=== PATIENT | female | born 1955 | race American Indian/Alaskan Native ===

== ENCOUNTER 2019-04-21 06:39 | Day surgery (SDC) | payer BC ==
[2019-04-21] MEDS ORDERED: NACL 0.9% 1000 ML 1,000 ML IV SCH (07:00)
--- NOTE | 2019-04-21 08:17 | Anesthesia Day of Surgery ---
Anesthesia Day of Surgery - Day of Surgery Patient Examined: Yes Patient H&P Reviewed: Yes Patient is NPO: Yes
--- NOTE | 2019-04-21 08:17 | Anesthesia Consultation ---
Anesthesia Consult and Med Hx Date of service: 04/21/19 - Airway Anesthetic Teeth Evaluation: Partials ROM Head & Neck: Adequate Mental/Hyoid Distance: Adequate Mallampati Class: Class II Intubation Access Assessment: Probably Good - Pulmonary Exam CTA: Yes - Cardiac Exam Cardiac Exam: RRR - Pre-Operative Health Status ASA Pre-Surgery Classification: ASA1 Proposed Anesthetic Plan: MAC - Pulmonary Hx Smoking: No Hx Respiratory Symptoms: No Hx Sleep Apnea: No - Cardiovascular System Hx Hypertension: No Hx Heart Attack/AMI: No - Central Nervous System Hx Seizures: No CVA: No - Gastrointestinal Hx Gastroesophageal Reflux Disease: No - Endocrine Hx Renal Disease: No Hx Liver Disease: No Hx Insulin Dependent Diabetes: No Hx Non-Insulin Dependent Diabetes: No Hx Thyroid Disease: No - Other Systems Hx Obesity: No - Additional Comments Anesthesia Medical History Comments: No hx anesthetic complications. Patient is very anxious about the procedure and anesthetic.
--- NOTE | 2019-04-21 09:12 | Short Stay Summary ---
Short Stay Documentation Date of service: 04/21/19 Narrative H&P: The patient presents for her first screening colonoscopy.Average risk profile. - History Past Medical History: hyperlipidemia Past Surgical History: , Other (tubal ligation) Social history: no significant social history - Allergies and Medications Current Medications: Allergies No Known Allergies Allergy (Verified 04/20/19 10:38) Home Medications Medication Instructions Recorded Confirmed Last Taken Type Gemfibrozil 600 mg PO BID 04/20/19 04/20/19 04/20/19 History Active Medications Sodium Chloride (Nacl 0.9% 1000 Ml) 1,000 mls @ 50 mls/hr IV DIRECT KINA Last Admin: 04/21/19 08:34 Dose: 50 mls/hr Documented by: - Physical exam General appearance: no acute distress, well-nourished Integumentary: no rash, no growths, no abnormal pigmentation HEENT: Atraumatic, PERRLA, EOMI, Mucous membr. moist/pink Lungs: Clear to auscultation Breasts: deferred Heart: Regular rate, Normal S1, Normal S2, No murmurs Gastrointestinal: normal, normoactive bowel sounds, no tenderness, no distended, no masses, no guarding, no organomegaly, no obese Female Genitourinary: deferred Rectal Exam: deferred, normal exam-external/orifice, normal rectal tone Extremities: no ischemia, pulses intact, pulses symmetrical, No edema, normal temperature, normal color, Full ROM Neurological: Normal gait, Normal speech, Strength at 5/5 X4 ext, Normal tone, Sensation intact, Cranial nerves 3-12 NL - Brief post op/procedure progress note Date of procedure: 04/21/19 Findings: see dictated report Estimated blood loss: none Pathology: none Condition: stable - Disposition Condition at discharge: Good Disposition: DC-01 TO HOME OR SELFCARE - Discharge Diagnoses (1) Colon cancer screening Status: Acute Short Stay Discharge Plan Activity: other (no driving for 24 hours) Weight Bearing Status: Full Weight Bearing Diet: regular Follow up with: HAILY FORTUNE PA [Primary Care Provider] - 7 Days
--- NOTE | 2019-04-21 09:14 | Operative Report ---
Operative Report Operative Report: Date of procedure: 04/21/2019 Preprocedure diagnosis: Colon cancer screening, no prior studies. Average risk. Post procedure diagnosis: Normal study Procedure: Colonoscopy to the cecum Endoscopist: Dr. Gilbert Anesthesia: Monitored anesthesia care per anesthesia department Estimated blood loss: 0 Medications: Monitored anesthesia care. See separate report by anesthesia for details. After careful discussion of the nature and purpose of the procedure as well as details of the technique risks benefits and alternatives the patient gave consent. Please see recent history and physical from the office. The patient was placed in the left lateral decubitus position and medicated per anesthesia. A rectal exam was performed sphincter tone was normal there were no masses palpable. The [employer] 570 scope was passed transanally and advanced under continuous direct vision without difficulty to the cecum. The colon was well prepared. The cecum was normal. The ascending colon was normal and on forward and retroflexed views. The transverse colon, descending colon, and sigmoid colon were normal. The rectum was normal on forward and retroflexed views. The procedure was well-tolerated overall and the patient was observed in recovery. Conclusions: Normal colonoscopy to the cecum. Plan: Repeat colonoscopy in 10 years, sooner if clinically indicated. Signed electronically: Alok Gilbert M.D.
[2019-04-21] MEDS ORDERED: DIPRIVAN 10 MG/ML IV ONE (09:20)
[2019-04-21 09:43] VITALS: BP 131/72
== END 2019-04-21 06:40 | disposition home or self-care (01) ==
LOC: GIO 06:39
PROVIDERS: ATTEND Internal Medicine Gastroenterology
DX: Z12.11 Encounter for screening for malignant neoplasm of colon (principal); E78.00 Pure hypercholesterolemia, unspecified; E78.5 Hyperlipidemia, unspecified; Z80.0 Family history of malignant neoplasm of digestive organs; Z98.51 Tubal ligation status; Z98.891 History of uterine scar from previous surgery; Z79.899 Other long term (current) drug therapy
CPT/HCPCS: 45378; J2704; J7030

== ENCOUNTER 2021-11-06 09:48 | Outpatient (CLI) | payer BC ==
--- NOTE | 2021-11-06 10:27 | XRay Report ---
Left hand 3 views INDICATION: Wrist pain FINDINGS: MCP joints and IP joints appear intact. No erosive or destructive changes. No focal soft ti ssue swelling or abnormality. Degenerative changes in the IP joint of the thumb. Signer Name: Jesus Manuel Glass MD Signed: 11/06/2021 10:23 AM Workstation Name: [id number]
== END 2021-11-06 09:49 | disposition home or self-care (01) ==
LOC: XRAY 09:48
PROVIDERS: ATTEND Orthopaedic Surgery
DX: M19.042 Primary osteoarthritis, left hand (principal)

== ENCOUNTER 2022-01-16 12:05 | Emergency (ER) | payer BC, OTHER ==
--- NOTE | 2022-01-16 13:17 | Event Note ---
ED Screening Note Date of service: 01/16/22 Time: 13:16 ED Screening Note: Patient complains of bilateral rib pain and left-sided chest pain after a fall yesterday She states today while walking she began to feel winded No past medical history per patient Patient reports she believes she hit her back and her side on the stairs when she fell This initial assessment/diagnostic orders/clinical plan/treatment(s) is/are subject to change based on patients health status, clinical progression and re- assessment by fellow clinical providers in the ED. Further treatment and workup at subsequent clinical providers discretion. Patient/guardian urged not to elope from the ED as their condition may be serious if not clinically assessed and managed. Initial orders include: Labs EKG Rib x-ray
[2022-01-16 13:45] LABS: Basophils # (Auto) 0.1 K/mm3 (0.0-0.1); Basophils % (Auto) 0.6 % (0.0-1.8); Eosinophils # (Auto) 0.1 K/mm3 (0.0-0.4); Eosinophils % (Auto) 1.5 % (0.0-4.3); Hemoglobin 13.5 gm/dl (10.1-14.3); Lymphocytes # (Auto) 1.9 K/mm3 (1.2-5.4); Lymphocytes % (Auto) 23.5 % (13.4-35.0); Mean Corpuscular HGB Conc 34 % (30-34); Mean Corpuscular Volume 91 fl (79-97); Monocytes # (Auto) 0.6 K/mm3 (0.0-0.8); Monocytes % (Auto) 7.4 % (0.0-7.3); Platelet Count 283 K/mm3 (140-440); Red Cell Distribution Width 13.5 % (13.2-15.2)
--- NOTE | 2022-01-16 14:01 | XRay Report ---
BILATERAL RIBS 4 VIEWS INDICATION / CLINICAL INFORMATION: bilat posterior lower pain and left pain post fall. COMPARISON: None available. FINDINGS: RIBS: No acute, displaced fracture or other acute abnormality. LUNGS: No acute findings. No pneumothorax. Signer Name: Slick Begum MD Signed: 01/16/2022 1:56 PM Workstation Name: [id number]
[2022-01-16 14:06] LABS: Alanine Aminotransferase 20 units/L (7-56); Albumin 4.1 g/dL (3.9-5); BUN/Creatinine Ratio 17; Blood Urea Nitrogen 15 mg/dL (7-17); Calcium 9.4 mg/dL (8.4-10.2); Hemolysis Index 7
[2022-01-16] MEDS ORDERED: KETOROLAC 10 MG TAB PO ONE (14:36)
[2022-01-16] MEDS ORDERED: ACETAMINOPHEN W/CODEINE 300-30 MG TAB PO ONE (14:37)
[2022-01-16] MEDS ORDERED: CYCLOBENZAPRINE 10 MG TAB PO ONE (14:37)
--- NOTE | 2022-01-16 14:40 | Emergency Department Report ---
ED Fall HPI - General Chief Complaint: Dyspnea/Respdistress Stated Complaint: INCREASE EFFORT TO BREATH Time Seen by Provider: 01/16/22 13:14 Source: patient Mode of arrival: Ambulatory - History of Present Illness Initial Comments: 66-year-old black female with no past medical history presents to the emergency department with shortness of breath. She states that 2 days ago she slipped down on her stairs and hit her left rib area and has been having pain to the area since then. She states that today while working pain was worse and it made her feel like she could not catch her breath. She states that pain is to the entire left rib area along with the left chest area. Pain is worse with movement and palpation. She denies nausea, vomiting, dizziness, diaphoresis. 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 denies: headache, neck pain, numbness, weakness, abdominal pain, hematuria, unable to walk, lightheaded, vertigo, confusion - Related Data Home Medications Medication Instructions Recorded Confirmed Last Taken Gemfibrozil 600 mg PO BID 04/20/19 04/20/19 04/20/19 Previous Rx's Medication Instructions Recorded Last Taken Type HYDROcodone/APAP 5-325 [Astatula 1 each PO Q6HR PRN #12 tablet 01/16/18 Unknown Rx 5/325] Homatropine HBr [Homatropine 1 drop OP BID 2 Days #5 ml 01/16/18 Unknown Rx Hydrobromide] Moxifloxacin HCl [Vigamox 0.5%] 1 drop OP Q8HR #1 bottle 01/16/18 Unknown Rx Naphazoline HCl/Pheniramine 1 drop OP TID #1 bottle 01/16/18 Unknown Rx [Naphcon-A Eye Drops] Acetaminophen/Codeine [Tylenol 1 tab PO Q6H PRN #12 tab 01/16/22 Unknown Rx /Codeine # 3 tab] Cyclobenzaprine [Flexeril] 10 mg PO TID PRN #12 tab 01/16/22 Unknown Rx Ketorolac [Toradol] 10 mg PO Q6H PRN #12 tab 01/16/22 Unknown Rx Allergies Allergy/AdvReac Type Severity Reaction Status Date / Time No Known Allergies Allergy Verified 01/07/22 22:44 ED Review of Systems ROS: Stated complaint: INCREASE EFFORT TO BREATH Other details as noted in HPI Comment: All other systems reviewed and negative Constitutional: denies: chills, diaphoresis, fever, weakness Eyes: denies: eye pain, vision change ENT: denies: ear pain, throat pain, epistaxis, congestion Respiratory: shortness of breath, SOB with exertion. denies: cough, SOB at rest, wheezing Cardiovascular: chest pain. denies: palpitations, dyspnea on exertion, orthopnea, edema, syncope, paroxysmal nocturnal dyspnea Endocrine: no symptoms reported Gastrointestinal: denies: abdominal pain, nausea, vomiting, diarrhea, hematemesis, melena, hematochezia Genitourinary: denies: urgency, dysuria, frequency, hematuria, discharge Musculoskeletal: back pain Skin: denies: rash, lesions Neurological: denies: headache, weakness, numbness, paresthesias, confusion, abnormal gait, vertigo Psychiatric: denies: anxiety Hematological/Lymphatic: denies: easy bleeding, easy bruising ED Past Medical Hx - Past Medical History Hx Hypertension: No Hx Heart Attack/AMI: No Hx Liver Disease: No Hx Renal Disease: No Hx Seizures: No - Surgical History Additional Surgical History: Tubal ligation - Social History Smoking Status: Never Smoker - Medications Home Medications: Home Medications Medication Instructions Recorded Confirmed Last Taken Type HYDROcodone/APAP 5-325 [Astatula 1 each PO Q6HR PRN #12 tablet 01/16/18 Unknown Rx 5/325] Homatropine HBr [Homatropine 1 drop OP BID 2 Days #5 ml 01/16/18 Unknown Rx Hydrobromide] Moxifloxacin HCl [Vigamox 0.5%] 1 drop OP Q8HR #1 bottle 01/16/18 Unknown Rx Naphazoline HCl/Pheniramine 1 drop OP TID #1 bottle 01/16/18 Unknown Rx [Naphcon-A Eye Drops] Gemfibrozil 600 mg PO BID 04/20/19 04/20/19 04/20/19 History Acetaminophen/Codeine [Tylenol 1 tab PO Q6H PRN #12 tab 01/16/22 Unknown Rx /Codeine # 3 tab] Cyclobenzaprine [Flexeril] 10 mg PO TID PRN #12 tab 01/16/22 Unknown Rx Ketorolac [Toradol] 10 mg PO Q6H PRN #12 tab 01/16/22 Unknown Rx ED Physical Exam - General Limitations: No Limitations General appearance: alert, in no apparent distress - Head Head exam: Present: atraumatic, normocephalic - Eye Eye exam: Present: normal appearance. Absent: conjunctival injection - Neck Neck exam: Present: normal inspection, full ROM. Absent: tenderness - Respiratory Respiratory exam: Present: normal lung sounds bilaterally, chest wall tenderness. Absent: respiratory distress, wheezes, rales, rhonchi, stridor, accessory muscle use - Cardiovascular Cardiovascular Exam: Present: regular rate, normal heart sounds - Expanded Cardiovascular Exam Expanded 1 - Tenderness to palpation - GI/Abdominal GI/Abdominal exam: Present: soft, normal bowel sounds. Absent: distended, tenderness, guarding, rebound, rigid - Extremities Exam Extremities exam: Present: normal inspection - Back Exam Back exam: Present: normal inspection, tenderness. Absent: CVA tenderness (R), CVA tenderness (L) - Expanded Back Exam Expanded Back exam: Absent: saddle anesthesia 1 - Tenderness - Neurological Exam Neurological exam: Present: alert, oriented X3 - Psychiatric Psychiatric exam: Present: normal affect, normal mood - Skin Skin exam: Present: warm, dry, intact, normal color ED Course Vital Signs 01/16/22 01/16/22 12:13 16:32 Temperature 98.6 F Pulse Rate 64 60 Respiratory 18 16 Rate Blood Pressure 155/71 Blood Pressure 182/80 [Right] O2 Sat by Pulse 99 99 Oximetry ED Medical Decision Making - Lab Data Result diagrams: 01/16/22 13:20 01/16/22 13:20 - EKG Data EKG shows normal: sinus rhythm Rate: normal - EKG Data Interpretation: no acute changes 01/16/22 18:36 No acute ischemic changes noted - Radiology Data Radiology results: report reviewed, image reviewed Rib x-ray with PA chest FINDINGS: RIBS: No acute, displaced fracture or other acute abnormality. LUNGS: No acute findings. No pneumothorax. - Medical Decision Making 66-year-old black female with no past medical history presents to the emergency department with shortness of breath. She states that 2 days ago she slipped down on her stairs and hit her left rib area and has been having pain to the area since then. She states that today while working pain was worse and it made her feel like she could not catch her breath. She states that pain is to the entire left rib area along with the left chest area. Pain is worse with movement and palpation. She denies nausea, vomiting, dizziness, diaphoresis. No gross abnormalities noted on labs. Troponin negative. EKG without any acute ischemic changes noted. Rib x-ray without fracture or pneumothorax. Patient will be treated for left rib pain/contusion with as needed Toradol, Flexeril, and Tylenol 3. She was advised to take medications as prescribed, take a few days of rest, and follow-up with primary care provider if no improvement or worsening symptoms. She was advised to return to the emergency department for any concerning symptoms. She verbalized understanding of and agreement with plan of care. Critical care attestation.: If time is entered above; I have spent that time in minutes in the direct care of this critically ill patient, excluding procedure time. ED Disposition Clinical Impression: Rib pain on left side Fall Qualifiers: Encounter type: initial encounter Qualified Code(s): W19.XXXA - Unspecified fall, initial encounter Disposition: HOME / SELF CARE / HOMELESS Is pt being admited?: No Does the pt Need Aspirin: No Condition: Stable Instructions: Chest Wall Pain, [id number], Nonspecific Chest Pain, Adult, Rib Contusion Additional Instructions: Take medications as prescribed. Follow-up with primary care provider if no improvement or worsening symptoms. Return to the emergency department for any concerning symptoms. Prescriptions: Cyclobenzaprine [Flexeril] 10 mg PO TID PRN #12 tab PRN Reason: Muscle Spasm Ketorolac [Toradol] 10 mg PO Q6H PRN #12 tab PRN Reason: Pain Acetaminophen/Codeine [Tylenol /Codeine # 3 tab] 1 tab PO Q6H PRN #12 tab PRN Reason: Pain , Severe (7-10) Referrals: YENNY FARAH MD [Referring] - 3-5 Days Forms: Work/School Release Form(ED) Time of Disposition: 14:40
[2022-01-16 16:34] VITALS: BP 182/80
--- NOTE | 2022-01-17 09:23 | Electrocardiograph Report ---
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
== END 2022-01-16 16:34 | disposition home or self-care (01) ==
LOC: ED 12:05
DX: R07.81 Pleurodynia (principal); Z98.51 Tubal ligation status; Z79.899 Other long term (current) drug therapy; W10.8XXA Fall (on) (from) other stairs and steps, initial encounter; Y93.89 Activity, other specified; Y92.89 Other specified places as the place of occurrence of the external cause; Y99.8 Other external cause status
CPT/HCPCS: 36415; 71111; 80053; 84484; 85025; 93005; 99284